=== PATIENT | female | born 1990 | race Caucasian/White ===

== ENCOUNTER 2019-08-14 17:58 | Emergency (ER) | payer BC, SELFPAY ==
[2019-08-14 18:07] VITALS: BP 129/77; PULSE 81; RESP 22; TEMP 37; O2SAT 99
--- NOTE | 2019-08-14 18:30 | ED.GENADULT ---
HPI - General Adult General Chief complaint: Upper Respiratory Infection Stated complaint: sore throat/dry cough Time Seen by Provider: 08/14/19 18:30 Source: patient and RN notes reviewed Mode of arrival: ambulatory Limitations: no limitations History of Present Illness HPI narrative: 29-year-old female presents with complaints of sore throat for the past 3 days. Ibuprofen and chloraseptic spray with some relief. Symptoms increased over the last 24 hours per Sangeeta. No high fevers, drooling, neck or throat swelling. Pain is bilateral. Hurts to swallow. Exacerbation factors consist of eating and drinking. No rhinorrhea or nasal congestion. No voice change. No diarrhea, nausea, vomiting, or abdominal pain. Tolerating liquids well. Denies chills, difficulty swallowing, jaw pain, dental pain, facial pain, foreign body sensation, and rash. Denies chest pain and dyspnea. Remains active. Denies headaches, weakness, fatigue, myalgia. Denies recent traveling. Denies concern for COVID-19 or exposures been home since [id number] order except for essential household needs, work, and return home. Some parts of this dictation were generated by voice recognition software and may contain typographical and/or grammatical inaccuracies. Related Data Home Medications Medication Instructions Recorded Confirmed albuterol sulfate 2 puff INHALATION QID PRN 08/14/19 08/14/19 Allergies Allergy/AdvReac Type Severity Reaction Status Date / Time No Known Allergies Allergy Unverified 12/01/11 12:50 Review of Systems Review of Systems: Narrative: CONSTITUTIONAL: Denies fever, chills, sweats. EYES: Denies visual changes, redness, discharge. ENT: Denies congestion, rhinorrhea, otalgia. Complains of sore throat. CARDIOVASCULAR: Denies chest pain, palpitations, edema. RESPIRATORY: Denies dyspnea, wheezing, cough. GASTROINTESTINAL: Denies abdominal pain, nausea, vomiting, diarrhea. GENITOURINARY: Denies dysuria, hematuria, abnormal discharge. SKIN: Denies rash or itching. MUSCULOSKELETAL: Denies acute back pain, joint pain, or myalgia. NEUROLOGIC: Denies numbness or focal weakness. PSYCHIATRIC: Denies anxiety or depression. All systems reviewed & are unremarkable except as noted in HPI and below. [facility] Past Medical History Medical History (Updated 08/14/19 @ 19:17 by ZACARIAS Salazar) Abdominal wall mass Removed Asthma delivery delivered Surgical History Surgical History (Updated 08/14/19 @ 19:17 by ZACARIAS Salazar) H/O section X1 History of ankle surgery Bilateral multiple times History of dental surgery Teeth removed wears dentures History of tonsillectomy Family History Family History (Updated 08/14/19 @ 19:17 by ZACARIAS Salazar) Father Hypertension Mother Heart disease Social History Social History (Updated 08/14/19 @ 19:18 by ZACARIAS Salazar) Smoking packs per day: 0.5 Smoking cigarettes per day: 10.0 Years smoked: 10 Smoking pack-years: 5.00 Smoking status: Current every day smoker Tobacco type: cigarettes Second hand tobacco smoke exposure: No Alcohol intake: current Alcohol use details: Rarely Substance use: never Living arrangements: with family Occupation/Education: occupation Gender identity (if verbalized by the patient): Female Comments At time of signature, agree with nurse past medical, surgical, social, and family history. There is patient past history relevant but no family history pertinent to the presenting complaint. Exam Narrative: Exam Narrative: GENERAL: This is a well-nourished, well-developed patient, in no apparent distress. Speaks in full sentences without deficits and ambulates with steady gait without dyspnea. HEAD: normocephalic, atraumatic. EYES: PERRL. Sclera clear/white. Vision is grossly intact. EARS: External ears normal, auditory canals clear and without drainage, RT
== END 2019-08-14 18:45 | disposition home or self-care (01) ==
PROVIDERS: Emergency Provider Nurse Practitioner Family; PCP Family Medicine
DX: J02.9 Acute pharyngitis, unspecified (principal); H93.8X2 Other specified disorders of left ear; J45.909 Unspecified asthma, uncomplicated; F17.210 Nicotine dependence, cigarettes, uncomplicated; R03.0 Elevated blood-pressure reading, without diagnosis of hypertension
CPT/HCPCS: 87081; 87804; 87880; 99213; G0463